=== PATIENT | female | born 1995 | race Caucasian/White ===

== ENCOUNTER 2023-12-28 10:25 | Outpatient (RCR) | payer OTHER, SELFPAY ==
--- NOTE | ~2023-12-28 | US_ITS ---
EXAMINATION: US OB limited w BPP DATE: 12/28/2023 11:44 INDICATION: Evaluate amniotic fluid and well-being TECHNIQUE: Real-time pelvic ultrasound was performed. The interpreting radiologist was not present fo r the study. COMPARISON: None. FINDINGS: There is a single living fetus in vertex presentation. The placenta is anterior/maternal right. Feta l cardiac activity and movement are demonstrated. heart rate is 134 beats per minute (bpm ). There is polyhydramnios. MELISSA measures 26.9 cm. Biophysical profile performed by the technologist: breathing (30 sec sustained breathing in 30 minutes): 2 out of 2 movement (3 gross body movements in 30 minutes): 2 out of 2 tone (one episode of gztxnav-paelknqah-pbmvqyc limb movement): 2 out of 2 Amniotic fluid pocket (2 cm): 2 out of 2 Total score: 8 out of 8 IMPRESSION: 1. Single living intrauterine in vertex presentation with heart rate of 134 bpm. 2. Normal placenta. 3. Biophysical profile 8 out of 8. 4: Polyhydramnios. Reviewed, dictated and finalized at location B.
[2023-12-28 12:21] VITALS: BP 122/79; PULSE 74
== END 2023-12-28 11:00 | disposition home or self-care (01) ==
LOC: ANHOBOP 10:25
PROVIDERS: PCP Internal Medicine; Visit Provider Obstetrics & Gynecology
DX: O48.0 Post-term pregnancy (principal); O34.219 Maternal care for unspecified type scar from previous cesarean delivery; O40.3XX0 Polyhydramnios, third trimester, not applicable or unspecified; N85.8 Other specified noninflammatory disorders of uterus; Z3A.40 40 weeks gestation of pregnancy
CPT/HCPCS: 59025; 76815; 76819

== ENCOUNTER 2023-12-30 05:06 | Inpatient (IN) | payer OTHER, SELFPAY ==
[2023-12-30] VITALS (227 sets, daily range): BP systolic 58–223; BP diastolic 36–178; PULSE 32–164; RESP 16–18; TEMP 36.4–37.1; O2SAT 90–100; BMI 27.5
[2023-12-30] MEDS: LACTATED RINGERS 1,000 ML 125 ML IV CONT ×2 (05:51→18:09)
[2023-12-30] MEDS: AMPICILLIN 2 GM/NS 100 ML 2 GM/100 ML BAG IVPB (05:52)
[2023-12-30 06:01] LABS: Basophils Percent Auto 0.4 % (0.2-1.2); Eosinophils Absolute Auto 0.1 K/mm3 (0-0.3); Eosinophils Percent Auto 1.6 % (0-4.4); Hematocrit 35.4 % (37.0-47.0); Hemoglobin 11.8 g/dL (12.0-15.0); Immature Granulocyte Percent A 1.2 % (0-0.5); Lymphocytes Absolute Auto 1.43 K/mm3 (0.9-3.2); Lymphocytes Percent Auto 17.2 % (18.3-44.2); Mean Corpuscular HGB Conc 33.3 g/dl (32-36); Mean Corpuscular Hemoglobin 28.9 pg (26-34); Mean Corpuscular Volume 86.6 fl (80-100); Mean Platelet Volume 10.5 fl (7.4-10.4); Monocytes Absolute Auto 0.6 K/mm3 (0.1-0.6); Monocytes Percent Auto 7.1 % (2.6-8.5); Neutrophils Percent Auto 72.5 % (45.5-73.1); Platelet Count Result 214 k/mm3 (150-375); Red Blood Count 4.09 M/mm3 (4.2-5.4); Red Cell Distribution Width 13.3 % (11.5-14.5); White Blood Count 8.3 K/mm3 (4.5-10.0)
--- NOTE | 2023-12-30 06:31 | LDADM ---
This patient, Aleah Bryan, was admitted to Labor/Delivery/Recovery 102 on 12/30/23 at 05:06. Plans for labor, pain management and were discussed with patient. Patient/family oriented to hospital policies and general routines including ID bracelet, bed and alarms, visiting hours, pain management, procedures, bathroom and other care routines, personal items, smoking policy, room service/diet and guest tray routines, security routines, and visiting hours. Patient/Family are encouraged to report perceived risks to care and to ask questions if they do not understand what they are told or what they should do. See OBIX for further documentation.
[2023-12-30 06:54] LABS: HIV 1/2 Ab P24 Ag Result Negative (Negative)
--- NOTE | 2023-12-30 07:27 | PM.IMHP ---
H&P: HPI History of Present Illness Date/Time: 12/30/23 07:27 Chief Complaint: Frantz porter Narrative: 28 y/o at 40 2/7 weeks gestation who had a gush of clear fluid at 0300 today. She has some mild contractions. GBS pos. We have had multiple discussions during this - she strongly desires TOLAC. In her first she says she did not really achieve much cervical dilation, had a for nonreassuring status. otherwise uncomplicated. EFW 6#11oz at 36 5/7 weeks, so now EFW around 8lbs. MELISSA was a little elevated earlier this week at 27 cm. Review of Systems Review of Systems: All systems reviewed & are unremarkable except as noted in HPI and below PMFSH Surgical History Surgical History (Updated 12/30/23 @ 07:32 by Aneudy Pena MD) History of delivery History of knee surgery History of tonsillectomy Family History Family History Grandparent Congestive heart failure Social History Social History Smoking status: Never smoker Substance use: never Do You Feel Safe in your Home?: Yes Lack of Transportation: No Lack of Food: Never True Current Housing: I Have Housing Concerned About Future Housing: No Difficulty Paying Gas/Electric Bills: No Difficulty Paying for Meds: No Currently Unemployed: No Education: Master's Degree or Higher Difficulty w/ Childcare or Family Care: No Spiritual care concerns: No Meds Home Medications and Allergies Home Medications Medication Instructions Recorded Confirmed Type vits no.126-ferrous fum 1 tablet PO DAILY 12/02/23 12/02/23 History 28 mg iron-folic acid 800 mcg tablet (Classic ) Allergies Allergy/AdvReac Type Severity Reaction Status Date / Time No Known Allergies Allergy Verified 12/02/23 12:12 Vital Signs Vital Signs - 24 hr 12/30/23 06:30 12/30/23 07:11 12/30/23 07:16 Temperature 36.4 C Pulse Rate 77 Respiratory Rate 16 Blood Pressure 114/65 Pulse Oximetry 98 100 Oxygen Delivery 12/30/23 07:21 12/30/23 07:26 12/30/23 06:30 Temperature Pulse Rate Respiratory Rate Blood Pressure Pulse Oximetry 99 99 Oxygen Delivery Room Air Exam Const: Orientation/consciousness: patient oriented x3 Other: Well-developed, well-nourished female in no acute distress. Neck: Thyroid: thyroid normal Lymphatic: no lymphadenopathy noted (in neck, axilla or inguinal nodes) Resp: Effort & Inspection: normal respiratory effort Auscultation: clear to auscultation bilaterally Cardio: Rate: regular rate Rhythm: regular rhythm Heart sounds: S1 normal heart sound present and S2 normal heart sound present GI: Other: ABD: Soft, nontender, nondistended, gravid, vertex. NST reactive. TOCO: irregular contractions. No guarding or rebound tenderness. No hepatosplenomegaly. : General: Yes no CVA tenderness Other: Cervix fingertip / 50%. Gross ROM with clear fluid. IUPC placed. Back/Spine/Pelvis: Back: no CVA tenderness Skin: General skin exam: normal color and no rashes or lesions noted Neuro: General: patient oriented x3 Extrem: Other: Extremities: nontender with no edema Psych: Mental Status: mental status grossly normal Affect: normal affect H&P: Results Labs Labs: Short CBC 12/30/23 Range/Units 05:55 WBC 8.3 (4.5-10.0) K/mm3 Hgb 11.8 L (12.0-15.0) g/dL Hct 35.4 L (37.0-47.0) % Plt Count 214 (150-375) k/mm3 Assessment and Plan Assessment and plan (1) SROM (spontaneous rupture of membranes): Status: Acute Assessment and Plan: A: IUP at 40 2/7 weeks with SROM, GBS colonization, prior . She strongly desires TOLAC. P: We have reviewed risks associated with TOLAC on several occasions, including today. She understands risks to inc
[2023-12-30 07:51] LABS: Rapid Plasma Reagin Non-Reactive (NonReactive)
--- NOTE | 2023-12-30 08:35 | WPDANESEPP ---
Anes - Eval Pre Procedure Procedure: Labor epidural Date/Time: 12/30/23 08:35 Surgeon: Jean Preop Diagnosis: Pain during labor Pre Op Diagnosis: IOL Patient Data Age: 28 Gender: F Height: 1.83 m Weight: 92 kg Last Vital Signs Temp 36.4 C 12/30/23 06:30 Pulse 77 12/30/23 06:30 Resp 16 12/30/23 06:30 BP 114/65 12/30/23 06:30 Pulse Ox 98 12/30/23 08:33 O2 Del Method Room Air 12/30/23 06:30 Allergies Allergy/AdvReac Type Severity Reaction Status Date / Time No Known Allergies Allergy Verified 12/02/23 12:12 Home Medications Medication Instructions Recorded Confirmed Type vits no.126-ferrous fum 1 tablet PO DAILY 12/02/23 12/02/23 History 28 mg iron-folic acid 800 mcg tablet (Classic ) Laboratory Tests 12/30/23 05:55 WBC 8.3 K/mm3 (4.5-10.0) RBC 4.09 L M/mm3 (4.2-5.4) Hgb 11.8 L g/dL (12.0-15.0) Hct 35.4 L % (37.0-47.0) MCV 86.6 fl (80-100) MCH 28.9 pg (26-34) MCHC 33.3 g/dl (32-36) RDW 13.3 % (11.5-14.5) Plt Count 214 k/mm3 (150-375) MPV 10.5 H fl (7.4-10.4) Immature Gran % (Auto) 1.2 H % (0-0.5) Neut % (Auto) 72.5 % (45.5-73.1) Lymph % (Auto) 17.2 L % (18.3-44.2) [place] % (Auto) 7.1 % (2.6-8.5) Eos % (Auto) 1.6 % (0-4.4) Baso % (Auto) 0.4 % (0.2-1.2) Lymph # (Auto) 1.43 K/mm3 (0.9-3.2) [place] # (Auto) 0.6 K/mm3 (0.1-0.6) Eos # (Auto) 0.1 K/mm3 (0-0.3) Baso # (Auto) 0.0 K/mm3 (0.0-0.1) Abs Immat Gran (auto) 0.10 H K/mm3 (0.00-0.031) Absolute Neuts (auto) 6.0 K/mm3 (1.3-6.7) Absolute Nucleated RBC 0.000 K/mm3 (0.0-0.012) Nucleated RBC % 0.0 % (0.0-0.2) RPR Non-reactive (NonReactive) HIV 1&2 Ab/P24 Ag 4thGn Negative (Negative) Blood Type O Positive Antibody Screen Negative Patient hx anesthesia problems: none Family hx anesthesia problems: none Results Review: All pre-operative results and documents have been reviewed as part of the pre-operative evaluation. [facility] Surgical History Surgical History History of delivery History of knee surgery History of tonsillectomy Family History Family History Grandparent Congestive heart failure Social History Social History Smoking status: Never smoker Substance use: never Do You Feel Safe in your Home?: Yes Lack of Transportation: No Lack of Food: Never True Current Housing: I Have Housing Concerned About Future Housing: No Difficulty Paying Gas/Electric Bills: No Difficulty Paying for Meds: No Currently Unemployed: No Education: Master's Degree or Higher Difficulty w/ Childcare or Family Care: No Spiritual care concerns: No Exam Day of Procedure 12/30/23 08:35 Patient weight: overweight Heart: regular rate and rhythm Lungs: clear to auscultation Airway: Mallampati scale Neurological: alert and oriented
[2023-12-30] MEDS: OXYTOCIN 30 UNITS/NS 500 ML 30 UNITS/500 ML BAG IV CONT (08:58)
[2023-12-30] MEDS: AMPICILLIN 1 GM/NS 50 ML 1 GM/50 ML BAG IVPB ×3 (10:02→18:09)
--- NOTE | 2023-12-30 14:03 | PM.OBPNLAB ---
Pain Control Date/time seen: 12/30/23 14:03 Comments: Comfortable with epidural. Pelvic Exam Dilation (cm): 3 Effacement (%): 90 station: 0 Contractions Contraction frequency: 3 Contraction pattern: Regular Status status: Category l Assessment and Plan Plan: continuous present management
[2023-12-30] MEDS: ONDANSETRON INJ 4 MG/2 ML VIAL IV PUSH (15:22)
--- NOTE | 2023-12-30 18:28 | PM.OBPNLAB ---
Pain Control Date/time seen: 12/30/23 18:28 Comments: Comfortable Pelvic Exam Dilation (cm): 6 Effacement (%): 90 station: 0 Contractions Contraction frequency: 3 Contraction pattern: Regular Status status: Category l Assessment and Plan Pitocin rate (mU/min): 3 Comments: Cervix unchanged for 2 hours. Patient would like to continue labor for a little longer.
[2023-12-30] MEDS: PHENYLEPHRINE 1,000 MCG/10 ML SYRINGE 100 MCG IV PUSH (18:49)
--- NOTE | 2023-12-30 22:27 | PM.OBPRVD ---
OB - Vaginal Delivery Note Procedure Delivery date: 12/30/23 Events: Previous Delivery Induction method: None Delivery augmentation: Pitocin Delivery monitor: External FHT, External Uterine and Internal Uterine Route of delivery: Episiotomy description: Midline Delivery repair: vicryl (3-0) Specimen: Yes (cord blood) Quantitative Blood Loss (ml): 370 Anesthesia type: Epidural Disposition: PACU Complications: None Narrative: 28 y/o at 40 2/7 weeks gestation who presented to the hospital after gush of clear fluid. SROM was confirmed. She was given ampicillin for GBS colonization. Labor was augmented with oxytocin intravenously. She received an epidural for pain control. Her labor progressed and her cervix dilated completely. She pushed with good effort. A midline episiotomy was made and the infant's head delivered to the perineum, followed by the body. The nose and mouth were bulb suctioned. After a delay, the cord was clamped and cut. The infant was handed off the field. Cord blood was collected. The placenta delivered spontaneously and was grossly normal in appearance. The usual 3 vessel cord was noted. The episiotomy was free of extension. This was reapproximated using 3 0 Vicryl in the usual layered fashion. Excellent hemostasis resulted as did excellent reapproximation of the normal anatomy. Needle and instrument counts were correct. The patient was taken to recovery room in stable condition. The went to the nursery in stable condition. I was present and scrubbed for the entire delivery. Baby Date of : 12/30/23 Time of : 22:02 Weeks of gestation at delivery: 40 Infant gender: Female presentation: vertex position: Left Occiput Anterior Placenta delivery description: Spontaneous and Normal Configuration Cord Vessel Description: 3 Vessels and Delayed Cord Clamping score one minute: 9 score five minutes: 9
--- NOTE | 2023-12-30 22:32 | PM.OBDSVD ---
DS: Admitting Diagnosis Discharge Date 01/01/24 Admitting Diagnosis IUP at 40 2/7 weeks SROM Prior , desires TOLAC GBS colonization DS: Discharge Diagnosis Discharge Diagnosis (1) , delivered: Code(s): O34.219 - Maternal care for unspecified type scar from previous delivery Status: Acute (2) GBS (group B Streptococcus carrier), +RV culture, currently : Code(s): O99.820 - Streptococcus B carrier state complicating Status: Acute OB - DS: Summary OB Procedures : None OB Procedures Intrapartum: OB Procedures: : None Peripartum Data Episiotomy description: Midline Time Spent with Patient Time attestation: Total time spent providing and/or coordinating discharge services: DS: Data Data Completed and Pending Labs on day of discharge: Labs from last 24 hours 12/30/23 05:55 WBC 8.3 RBC 4.09 L Hgb 11.8 L Hct 35.4 L MCV 86.6 MCH 28.9 MCHC 33.3 RDW 13.3 Plt Count 214 MPV 10.5 H Immature Gran % (Auto) 1.2 H Neut % (Auto) 72.5 Lymph % (Auto) 17.2 L [place] % (Auto) 7.1 Eos % (Auto) 1.6 Baso % (Auto) 0.4 Lymph # (Auto) 1.43 [place] # (Auto) 0.6 Eos # (Auto) 0.1 Baso # (Auto) 0.0 Abs Immat Gran (auto) 0.10 H Absolute Neuts (auto) 6.0 Absolute Nucleated RBC 0.000 Nucleated RBC % 0.0 RPR Non-reactive HIV 1&2 Ab/P24 Ag 4thGn Negative Blood Type O Positive Antibody Screen Negative Discharge Plan Discharge Attending physician on discharge: Aneudy Pena Discharging Clinician: Aneudy Pena Patient Disposition: Home, Self-Care Activity: pelvic rest Diet: regular Discharge Instructions: Call or return if temperature above 100.4? F, increased abdominal pain, increased vaginal bleeding or any new problems. Stand Alone Forms: General Discharge Information Follow-up/Referrals: Aneudy Pena MD [Physician] - 6 Weeks Discharge Medications: New ibuprofen 600 mg tablet 600 mg PO Q6H PRN (Reason: cramps) Qty: 30 0RF Continued Classic 28 mg iron- 800 mcg Tablet 1 tablet PO DAILY Date of admission: 12/30/23 05:06 Primary Care Provider: UNKNOWN,DOCTOR Admitting Provider: Aneudy Pena Attending physician on admission: Aneudy Pena Condition: Stable
[2023-12-30] MEDS: ACETAMINOPHEN 325 MG TABLET 650 MG PO (23:55)
[2023-12-30] MEDS: WITCH HAZEL 40 PADS 1 PAD TOPICAL (23:56)
[2023-12-30] MEDS: IBUPROFEN 600 MG TABLET PO (23:56)
[2023-12-30] MEDS: BENZOCAINE 20% AER SPR (*SP) 56 GM CAN 1 SPRAY TOPICAL (23:56)
[2023-12-31] VITALS (8 sets, daily range): BP systolic 104–158; BP diastolic 57–91; PULSE 61–78; RESP 16–18; TEMP 36.5–37.2; O2SAT 98–100
--- NOTE | 2023-12-31 00:40 | OBPPTRN ---
Patient transferred to post room #291 via wheelchair. Support person present. Oriented to unit, room, information board, rooming in, admission packet and security measures. Patient verbalizes understanding.
[2023-12-31 05:11] LABS: Hematocrit 34.2 % (37.0-47.0); Hemoglobin 11.3 g/dL (12.0-15.0)
[2023-12-31] MEDS: ACETAMINOPHEN 325 MG TABLET 650 MG PO ×3 (09:05→21:13)
[2023-12-31] MEDS: IBUPROFEN 600 MG TABLET PO ×3 (09:06→21:13)
[2023-12-31] MEDS: MULTIVIT/MIN/PREN/FOL AC/IRON TABLET 1 TAB PO (09:07)
[2023-12-31] MEDS: SIMETHICONE 80 MG TAB.CHEW PO (09:07)
[2023-12-31] MEDS: DOCUSATE SODIUM 100 MG CAPSULE PO (09:08)
--- NOTE | 2023-12-31 09:20 | PC.NURSE ---
Mother verbalizes she is able to independently latch with appropriate positioning and alignment. She has initial latch on nipple discomfort but no pain throughout feedings. is currently meeting outcomes for weight, output, jaundice, blood sugar and feeding frequencies of 8-12 times in 24 hours. Observed mother appropriately feeding infant in cradle hold on the right breast. Mother successfully breastfed her first baby. Compliance Nurse had some concerns about baby's suck reflex, but she appears to be latched and sucking well on the breast. Reviewed listening for swallows, will be fewer swallows to sucks until mom's milk is in. We also reviewed weight loss, jaundice, and output as indicators is getting everything she needs from . Mother declines any additional assistance or education at this time. Mother is encouraged to call for assistance if her infant doesn?t latch, pain with latching, questions or concerns. Mother voiced understanding of information shared along with the mom/baby guide for an additional resource. Reported to the Primary RN.
--- NOTE | 2023-12-31 10:26 | WPDANLDPN2 ---
Anes-Prog Note L&D Date/Time: 12/31/23 10:26 Comfortable throughout: labor and delivery Neuraxial method: epidural Epidural/Spinal procedure site: clean & non-tender Neuro status: Neuro function grossly intact. Cardiovascular status: normal Respiratory status: normal Airway patency: baseline Mental status: baseline Post-Op hydration status: normal Vital Signs: Last Vital Signs Temp 36.7 C 12/31/23 04:25 Pulse 65 12/31/23 04:25 Resp 16 12/31/23 04:25 BP 106/58 L 12/31/23 04:25 Pulse Ox 99 12/31/23 04:25 O2 Del Method Room Air 12/30/23 06:30 Pain score (VAS): 0 I/O: Intake & Output 12/30/23 12/31/23 12/31/23 23:59 07:59 15:59 Output Total 75 Balance -75 Post-procedural complaints: none Patient feedback: Patient satisfied with anesthetic care.
--- NOTE | 2023-12-31 10:43 | PM.OBPNVD ---
OB - PN: Subj Subjective Date/time seen: 12/31/23 10:43 Narrative: Pain OK. OB - PN: Obj Data Labs 12/31/23 04:31 Labs: Laboratory Results - last 24 hr 12/31/23 04:31 Hgb 11.3 L Hct 34.2 L OB - PN A/P Plan day: 1 Comments: A: PPD#1, doing well. P: Routine care. Exam Psych: Other: AVSS ABD soft, nontender, fundus firm EXT nontender
[2024-01-01] MEDS: IBUPROFEN 600 MG TABLET PO ×3 (02:51→15:39)
[2024-01-01] MEDS: ACETAMINOPHEN 325 MG TABLET 650 MG PO ×3 (02:51→15:39)
--- NOTE | 2024-01-01 09:17 | PM.OBPNVD ---
OB - PN: Subj Subjective Date/time seen: 01/01/24 09:17 Narrative: Pain OK. Would like to go home. OB - PN: Obj Data Labs 12/31/23 04:31 OB - PN A/P Plan day: 2 Comments: A: PPD#2, doing well. P: Home to f/u 6 weeks. Exam Psych: Other: AVSS ABD soft, nontender, fundus firm EXT nontender
[2024-01-01 09:23] VITALS: BP 115/69; PULSE 62; RESP 18; TEMP 36.8; O2SAT 100
[2024-01-01] MEDS: MULTIVIT/MIN/PREN/FOL AC/IRON TABLET 1 TAB PO (09:23)
[2024-01-01] MEDS: DOCUSATE SODIUM 100 MG CAPSULE PO ×2 (09:23→15:39)
--- NOTE | 2024-01-01 11:55 | PC.NURSE ---
Mother verbalizes she is able to independently latch with appropriate positioning and alignment. She denies any nipple discomfort and is responsively . Infant is currently not meeting outcomes for weight, but is meeting outcomes for output, jaundice, and feeding frequencies of 8-12 times in 24 hours. Per business leader request, this RN assessed latch and positioning. Per mother she was trying to latch to her right breast but said baby was sleepy, RN suggested unwrapping baby from blanket to wake her up, mother did so and was able to latch baby in cross cradle to right breast, baby had optimal latch and RN could see swallows and per mother she could hear swallows. Mother declines any additional assistance or education at this time. Mother is encouraged to call for assistance if her infant does not latch, pain with latching, questions or concerns. Mother voiced understanding of information shared along with the mom/baby guide for an additional resource. Reported to the Primary RN.
[2024-01-01] MEDS: BENZOCAINE 20% AER SPR (*SP) 56 GM CAN 1 SPRAY TOPICAL (15:38)
--- NOTE | 2024-01-02 10:01 | PC.NURSE ---
0845. Consulted with mother concerning needs and she shared her ability to independently latch infant optimally without pain. Per mom she reports baby is still having a hard time staying awake thru the feed. Mother is currently doing the 15-15-15 feeding plan: attempting to breastfeed baby for 15-20min, then pumping for 15 min and supplementing with at least 15ml of formula after. Mom understands the need to stimulate the sleepy infant to eat if needed while she is . has had appropriate feedings in the last 24 hours meets the outcomes output, blood sugar and jaundice at this time. Baby is not currently meeting her outcomes for weight. Her weight on 12/31 @1130 was 3350g which is 11.37% of her birthweight. Her weight on 12/31 @2234 was 3385g or 10.44% of her birthweight. At 0915 during today's consult with mom we did a weighted feed to determine how many ml's baby transferred during a feeding session. Her weight before the feed was 3425g and her weight after the feed was 3425g. Baby did have 2 stools during before the second weight was recorded. Reinforced with mom the importance of continuing to supplement after her attempts with at least 15 ml until she is cleared by her controller coal or ore to stop. Reinforced that mom needs to continue to pump to protect her milk supply. Measured mom's nipples to ensure the correct size flange is being used for her pump: measured at size 22mm; recommended mom used size 27 flange & pulled from pyxis for mom to use and go home with. Reinforced understanding of milk production, transition of milk, signs of adequate intake, transition of stool, prevention/relief of engorgement, plugged ducts, mastitis, responsive watching for feeding cues, the different methods of stimulating infant to breastfeed 1-3 hours after the start of the last feeding, community resources, and when to call a provider using the resource of the feeding sheet along with the mom and baby guide. Mother voiced understanding of the information shared, is confident to continue effectively her infant at home and supplementing after, when to call for assistance, denies any additional assistance or education at this time. Reported to the Primary RN.
[2024-01-03 11:12] VITALS: BP 136/73; PULSE 76; RESP 18; TEMP 36.9; O2SAT 100
== END 2024-01-01 19:20 | disposition home or self-care (01) | DRG 807 ==
LOC: ANHLDR 22:35 → ANHOB2 12-31 01:09
PROVIDERS: Admitting Provider Obstetrics & Gynecology; Visit Provider Obstetrics & Gynecology
DX: O34.219 Maternal care for unspecified type scar from previous cesarean delivery (principal); Z37.0 Single live birth; O99.824 Streptococcus B carrier state complicating childbirth; Z3A.40 40 weeks gestation of pregnancy
CPT/HCPCS: 36415; 59025; 76815; 76819; 84112; 85014; 85018; 85025; 86592; 86703; 86850; 86900; 86901; A9270; G0432; J0290; J2371; J2405; J2590; J2795; J7120

== ENCOUNTER 2025-05-28 13:42 | Emergency (ER) | payer OTHER, SELFPAY ==
[2025-05-28 13:51] VITALS: BP 132/85; PULSE 76; RESP 16; TEMP 36.5; O2SAT 100
--- NOTE | 2025-05-28 14:19 | ED_ITS ---
HPI - Female Genitourinary General Chief complaint: Vaginal Bleeding Stated complaint: VAGINAL BLEEDING Time Seen by Provider: 05/28/25 14:10 Source: patient and RN notes reviewed Mode of arrival: ambulatory Limitations: no limitations History of Present Illness HPI Narrative: 29-year-old female patient presents today with some intermittent vaginal bleeding over the past 2 days and states she feels blah.. Denies back pain or abdominal pain. She has had a positive test at home, which would be her 3rd preganancy. LMP 04/24/2025. She has seen Dr. Pena for previous pregnancies. Related Data Home Medications ?Medication ?Instructions ?Recorded ?Confirmed ?Last Taken ?Type No Home Medications 05/28/25 05/28/25 U nknown History Allergies Allergy/AdvReac Type Severity Reaction Status Date / Time No Known Allergies Allergy Verified 05/28/25 14:07 [facility] Surgical History Surgical History History of knee surgery History of delivery History of tonsillectomy Family History Family History Grandparent Congestive heart failure Social History Social History Smoking status: Never smoker Substance use: never Lack of Transportation: No Lack of Food: Never True Current Housing: I Have Housing Concerned About Future Housing: No Difficulty Paying Gas/Electric Bills: No Difficulty Paying for Meds: No Currently Unemployed: No Education: Master's Degree or Higher Difficulty w/ Childcare or Family Care: No Spiritual care concerns: No Comments At time of signature, I have reviewed and agree with nursing past medical, surgical, social and family history unless otherwise noted. Please see nursing chart for further information. There is no relevant family history pertinent to the presenting complaint Exam Narrative: GENERAL: Well-appearing, well-nourished, and in no acute distress. HEAD: Normocephalic, atraumatic. EYES: EOMI. No redness or drainage. Conjunctivae normal. ENT: Mucous membranes pink and moist. NECK: Normal AROM. CHEST: No respiratory distress. Clear to auscultation. HEART: Regular rate and rhythm. No murmur appreciated. ABDOMEN: Soft, nondistended, normal active bowel sounds.+ very mild tenderness to suprapubic area without rebound or guarding. EXTREMITIES: Normal range of motion. No edema. SKIN: Warm, dry, no rash. Capillary refill normal. Normal skin turgor. NEURO: No focal deficits. Alert and oriented x3. Gait steady. PSYCH: Normal affect. No signs of depression or anxiety. Course Course Level of Care: Express Care Visit Vital Signs Vital signs: Vital Signs Temperature 97.7 F 05/28/25 13:51 Pulse Rate 76 05/28/25 13:51 Respiratory Rate 16 05/28/25 13:51 Blood Pressure 132/85 05/28/25 13:51 Pulse Oximetry 100 05/28/25 13:51 Temperature 97.7 F 05/28/25 13:51 Pulse Rate 76 05/28/25 13:51 Respiratory Rate 16 05/28/25 13:51 Blood Pressure 132/85 05/28/25 13:51 Pulse Oximetry 100 05/28/25 13:51 Reviewed Transfer Transfered to: [place] Transportation: Other (Private vehicle) Transfer rationale: Daryn Accepting physician: Vaginal bleeding after positive test at home MDM MDM Narrative Medical decision making narrative: 29-year-old female patient presents today with some intermittent vaginal bleeding over the past 2 days and states she feels blah.. Denies back pain or abdominal pain. She has had a positive test at home, which would be her 3rd . LMP 04/24/2025. She has seen Dr. Pena for previous pregnancies. Upon exam, very mild tenderness of the suprapubic area without rebound or guarding. Due to limited capabilities at [facility], patient will be transferred to the ER at [facility] for further evaluation of her vaginal bleeding. Patient agrees with plan. VSS. Differential Diagnosis Differential Diagnosis: early , miscarriage, subchorionic hematoma, ectopic Critical Care Time Critical Care Time Critical Care Time: No Discharge Plan Discharge Clinical Impression: Vaginal bleeding Patient Disposition: Acute Care Hospital Condition: Stable Patient Language: Greek Prescriptions: No Action No Home Medications Follow-up/Referrals: PHYSICIAN,SOLDERER ELECTRONIC [Primary Care Provider, Internal Medicine] Time of Disposition: 14:25
== END 2025-05-28 14:20 | disposition short-term general hospital (02) ==
PROVIDERS: Emergency Provider Nurse Practitioner
DX: N93.9 Abnormal uterine and vaginal bleeding, unspecified (principal)
CPT/HCPCS: 99212; G0463

== ENCOUNTER 2025-05-28 14:41 | Emergency (ER) | payer OTHER, SELFPAY ==
--- OUTSIDE RECORDS SUMMARY | 2018-12-01 10:30 | XMS_ITS | Continuity of Care Document ---
Author Organization [employer] [place] Address [address] [place] [address] [address] [place] [address] Phone Care Team Providers Care Oyster Culler Name Role Phone Jhonatan PT, REINALDOT, Heladio Unavailable Unavaila ble Procedures Procedure Date Progress Note Therapeutic Exercise Therapeutic Activities Neuromuscular Re-Ed Manual Therapy Therapeutic Exercise Therapeutic Activities Neuromuscular Re-Ed Manual Therapy Hot or Cold Pack Therapeutic Exercise Therapeutic Activities Neuromuscular Re-Ed Manual Therapy Hot or Cold Pack Therapeutic Exercise Therapeutic Activities Neuromuscular Re-Ed Manual Therapy Therapeutic Exercise Therapeutic Activities Neuromuscular Re-Ed Manual Therapy Therapeutic Exercise Therapeutic Activities Neuromuscular Re-Ed Manual Therapy Progress Note Therapeutic Exercise Therapeutic Activities Neuromuscular Re-Ed Manual Therapy Hot or Cold Pack Therapeutic Exercise Therapeutic Activities Neuromuscular Re-Ed Manual Therapy Therapeutic Exercise Therapeutic Activities Neuromuscular Re-Ed Manual Therapy Hot or Cold Pack Therapeutic Exercise Therapeutic Activities Neuromuscular Re-Ed Manual Therapy Hot or Cold Pack Therapeutic Exercise Therapeutic Activities Neuromuscular Re-Ed Manual Therapy Hot or Cold Pack Therapeutic Exercise Therapeutic Activities Neuromuscular Re-Ed Manual Therapy Hot or Cold Pack Therapeutic Exercise Therapeutic Activities Neuromuscular Re-Ed Manual Therapy Hot or Cold Pack Therapeutic Exercise Therapeutic Activities Neuromuscular Re-Ed Manual Therapy Hot or Cold Pack Therapeutic Exercise Therapeutic Activities Neuromuscular Re-Ed Manual Therapy Hot or Cold Pack PT Evaluation Low Complexity Therapeutic Exercise Therapeutic Activities Manual Therapy Hot or Cold Pack Advance Directives Directive Yes / No Effective Date File Name No Information Encounters Encounter Description Practice Location Reason(s) For Visit Diagnoses Date Provider Providers Copied on Encounter [facility], [place], [place], [id number], tel:[phone] Ramonita Muscle weakness (generalized)Stiff ness of unspecified joint, not elsewhere classifiedAbnormal posturePain in right shoulder 9 Jhonatan Leija. . Referring Provider: Xavier Price [address], [place], [address]. tel:[phone] [facility], [place], [place], [id number], tel:[phone] [place] Muscle weakness (generalized)Stiff ness of unspecified joint, not elsewhere classifiedAbnormal posturePain in right shoulder Nov- 6- 9 [facility] Heladio. . Referring Provider: Luis Ervin, [address], [place], [address]. tel:[phone] [facility], [place], [place], [id number], [place] tel:[phone] [place] Muscle weakness (generalized)Stiff ness of unspecified joint, not elsewhere classifiedAbnormal posturePain in right shoulder Nov- 9- 9 [facility] Heladio. . Referring Provider: Luis Ervin, [address], [place], [address]. tel:[phone] [facility], [place], [place], [id number], [place] tel:[phone] [place] Muscle weakness (generalized)Stiff ness of unspecified joint, not elsewhere classifiedAbnormal posturePain in right shoulder Nov- 9 [facility] [place]. . Referring Provider: Luis Ervin [address], [place], [address]. tel:[phone] [facility], [place], [place], [id number], [place] tel:[phone] [place] Muscle weakness (generalized)Stiff ness of unspecified joint, not elsewhere classifiedAbnormal posturePain in right shoulder Nov- 2-201 9 [facility] Heladio. . Referring Provider: Luis Ervin, [address], [place], [address]. tel:[phone] [facility], [place], [place], [id number], [place] tel:[phone] [place] Muscle weakness (generalized)Stiff ness of unspecified joint, not elsewhere classifiedAbnormal posturePain in right shoulder Nov- 0-201 9 [facility] [place]. . Referring Provider: Luis Ervin, [address], [place], [address]. tel:[phone] [facility], [place], [place], [id number], [place] tel:[phone] [place] Muscle weakness (generalized)Stiff ness of unspecified joint, not elsewhere classifiedAbnormal posturePain in right shoulder 0 9 [facility] Heladio. . Referring Provider: Luis Ervin, [address], [place], [address]. tel:[phone] [facility], [place], [place], [id number], [place] tel:[phone] [place] Muscle weakness (generalized)Stiff ness of unspecified joint, not elsewhere classifiedAbnormal posturePain in right shoulder 0 9 [facility] Ferreira. . Referring Provider: Luis Ervin, [address], [place], [address]. tel:[phone] [facility], [place], [place], [id number], [place] tel:[phone] [place] Muscle weakness (generalized)Stiff ness of unspecified joint, not elsewhere classifiedAbnormal posturePain in right shoulder 9 [facility] Heladio. . Referring Provider: Luis Ervin, [address], [place], [address]. tel:[phone] [facility], [place], [place], [id number], [place] tel:[phone] [place] Muscle weakness (generalized)Stiff ness of unspecified joint, not elsewhere classifiedAbnormal posturePain in right shoulder 9 [facility] Heladio. . Referring Provider: Luis Ervin, [address], [place], [address]. tel:[phone] [facility], [place], [place], [id number], [place] tel:[phone] [place] Muscle weakness (generalized)Stiff ness of unspecified joint, not elsewhere classifiedAbnormal posturePain in right shoulder 9 [facility] Heladio. . Referring Provider: Luis Ervin, [address], [place], [address]. tel:[phone] [facility], [place], [place], [id number], [place] tel:[phone] [place] Muscle weakness (generalized)Stiff ness of unspecified joint, not elsewhere classifiedAbnormal posturePain in right shoulder 9 [facility] Heladio. . Referring Provider: Luis Ervin, [address], [place], [address]. tel:[phone] [facility], [place], [place], [id number], [place] tel:[phone] [place] Muscle weakness (generalized)Stiff ness of unspecified joint, not elsewhere classifiedAbnormal posturePain in right shoulder 9 [facility] Heladio. . Referring Provider: Luis Ervin, [address], [place], [address]. tel:[phone] [facility], [place], [place], [id number], [place] tel:[phone] [place] Muscle weakness (generalized)Stiff ness of unspecified joint, not elsewhere classifiedAbnormal posturePain in right shoulder 9 Donavon Ferreira. . Referring Provider: Luis Ervin, [address], [place], [address]. tel:[phone] [facility], [place], [place], [id number], [place] tel:[phone] [place] Muscle weakness (generalized)Stiff ness of unspecified joint, not elsewhere classifiedAbnormal posturePain in right shoulder 0-201 9 [facility] Heladio. . Referring Provider: Luis Ervin, [address], [place], [address]. tel:[phone] [facility] [address], [place], [place], [id number], [place] tel:[phone] [place] Muscle weakness (generalized)Stiff ness of unspecified joint, not elsewhere classifiedAbnormal posturePain in right shoulder 201 9 Jhonatan Leija. . Referring [facility]: [facility] [address], [place], [address]. tel:[phone] Family History Family Member Type Diagnosis Age At Onset No Information Payers Payer name Insurance type Covered constitution party ID Authorcarrolla dayday(s) [facility] CI [id number] Social History Type Description Quantity Date Captured Comments Sex Female Smoking Status No Information Chief Complaint And Reason For Visit No Information Reason For Referral Reason For Referral No Information History Of Present Illness Encounter Date Complaint History Of Prese nt Illness No Information Functional Status Date Functional Assessmen t No Information Instructions Date Instruction Additional Infor mation No Information Assessments Type Assessment Date No Information Patient Care Teams Name Effective Dates (start - stop) Status Members No Information
--- OUTSIDE RECORDS SUMMARY | 2025-05-28 14:47 | XMS_ITS | Clinical Summary ---
Author Organization [facility] Address [address] [place] [address] Care Team Providers Care Pipeline Engineer Name Role Phone Gunner Bliss MD Primary Care Provider [phone] Allergies No known active allergies Medications levonorgestrel (GIGI) 13.5 MG IUD 1 each (13.5 mg total) by Intrauterine route once. Active Apple Cider Vinegar 500 MG Tab Take 1 capsule by mouth daily. Active fish oil (OMEGA-3 FATTY ACID) 1000 MG Cap capsule Take 1 capsule (1,000 mg total) by mouth daily. Active Active Problems Problem Noted Date Diagnosed Date Complex tear of lateral meni scus of right knee as current injury 09/03/2022 Overview (10/22/2022): Added automatically from request for surgery [id number] Heart murmur 08/11/2022 Shortness of breath 08/11/2022 Encounter for elective induction of labor 2020 Migraine headache 08/10/2016 Overview (10/22/2022): Migraine type headaches Mild cognitive disorder 08/10/2016 Overview (10/22/2022): Mild cognitive disorder Astigmatism 06/02/2011 Immunizations Immunization Administration Dates Next Due Dtap (Generic) 12/05/1998 Hepatitis B 06/07/1994,01/25/1994,1993 Hib 03/01/1995,06/07/1994,03/29/1994 ,01/25/1994 Influenza (Generic) 05/27/2016 Influenza Adult (Generic) 04/04/2020,11/2019,03/25/2017,06/01/2016,2013,06/18/2013,04/23/2012 MMR 12/05/1998,03/01/1995 Opv 12/05/1998,03/29/1994,01/25/1994 Tdap (Generic) 06/26/2020,07/12/2019,06/06/2007 Family History Medical History Relation Comments skin cancer Father Thyroid Disease Mother Relation Status Comments Father Alive Mother Alive Social History Tobacco Use Types Packs/Day Years Used Date Smoking Tobacco: Never Smokeless Tobacco: Never Tobacco Cessation:Counseling Given: No Alcohol Use Standard Drinks/Week Comments Not Currently 0 (1 standard drink = 0.6 oz pur e alcohol) Humiliation, Afraid, Rape, and Kick questionnair e Answer Date Recorded Within the last year, have y ou been afraid of your partner or ex-partner? No 08/07/2020 Within the last year, have y ou been humiliated or emotionally abused in other ways by your partner or ex-partner? No Within the last year, have y ou been kicked, hit, slapped, or otherwise physically hurt by your partner or ex-partner? No 08/07/2020 Within the last year, have y ou been raped or forced to have any kind of sexual activity by your partner or ex-partner? No 08/07/2020 PHQ-2 Answer Date Recorded Patient Health Questionnaire-2 Score 0 10/22/2022 Depression Answer Date Recor ded Last EPDS Total Score 3 08/08/2020 Last EPDS Self Harm Result Often 08/08 Comments No Sex and Gender Information Value Date Recorded Sex Assigned at Not on file Legal Sex Female 4:56 PM CDT Gender Identity Not on file Sexual Orientation Not on file Last Filed Vital Signs Vital Sign Reading Time Taken Comments Blood Pressure 106/68 10/22/2022 8:15 AM CDT Pulse 68 10/22/2022 8:15 AM CDT Temperature 36.8 C (98.3 F) 10/22/2022 8:15 AM CDT Respiratory Rate 16 10/22/2022 8:15 AM CDT Oxygen Saturation 99% 10/22/2022 8:15 AM CDT Inhaled Oxygen Concentration - - Weight 69.9 kg (154 lb) 10/22/2022 8:15 AM CDT Height 182.9 cm (6') 10/22/2022 8:15 AM CDT Body Mass Index 20.89 10/22/2022 8:15 AM CDT Plan of Treatment Health Maintenance Due Date Last Done Comments Cervical Cancer Screening Pap Smear (Age 30 to 64) Every 3 Years 1993 HPV Vaccines (1 - 3-dose SCDM series) 2020 Annual Physical 10/23/2023 10/22/2022 Cervical Cancer Screening Pap with HPV Testing (Age 30 to 64) Every 5 Years 11/24/2023 Cervical Cancer Screening with HPV 11/24/2023 PHQ-2 (Physician [place]) 06/06/2024 COVID-19 Vaccine ( season) 2025 Influenza Adult (#1) 2025 04/04/2020, 07/12/2019, 03/25/2017, Additional history exists DTaP, Tdap and Td Vaccines (5 - Td or Tdap) 06/26/2030 06/26/2020, 07/12/2019, 06/06/2007, Additional history exists Hepatitis B Vaccines Completed 06/07/1994, 01/25/1994, 1993 Hepatitis C Completed 10/22/2022 Hepatitis A Vaccines Aged Out No long er eligible based on patient's age to complete this topic Meningococcal B Vaccine Aged Out No l onger eligible based on patient's age to complete this topic Meningococcal Vaccine Aged Out No chrissie huseyin eligible based on patient's age to complete this topic Pneumococcal Vaccine: Pediatrics (0 to 5 Years) and At-Risk Patients (6 to 49 Years) Aged Out No longer eligible based on patient's age to complete this topic RSV Immunizations Under 20 Months Aged Out No longer eligible based on patient's age to complete this topic Procedures Procedure Name Priority Date/Time Associated Diagnosis Comments HEPATITIS C ANTIBODY Routine 10/22/2022 9:16 AM CDT Annual physical exam Encounter for medical examination to establish care General medical exam Encounter for hepatitis C screening test for low risk patient from Last 3 Months or Most Recently Relevant to Health Maintenance Results * HEPATITIS C ANTIBODY (10/22/2022 9:16 AM CDT) HEPATITIS C AB NON-REACTI VE NON-REACT CHRISTA 10/22/2022 7:37 PM CDT [facility] Comment: ANTIBODIES TO HCV NOT DETECTED. DOES NOT EXCLUDE THE POSSIBILITY OF EXPOSURE TO HCV. 10/22/2022 9:16 AM CDT Gunner Bliss MD LABORATORY Final Result Performing Organization Address City/State/[facility] Co de Phone Number [facility] [address] [place] [address], [phone] from Last 3 Months or Most Recently Relevant to Health Maintenance Insurance Advance Directives * Full Code (Latest Code Status on File) Date Activated Date Inactivated Comments 08/07/2020 1:38 PM 08/09/2020 5:21 PM * Full Code Date Activated Date Inactivated Comments 08/07/2020 12:17 AM 08/07/2020 1:38 PM Care Teams Pipeline Engineer Relationship Specialty Start Date End Date Gunner Bliss MD [address] [address] PCP - General INTERNAL MEDICINE 08/17/22
--- OUTSIDE RECORDS SUMMARY | 2025-05-28 14:47 | XMS_ITS | Clinical Summary ---
Author Organization [facility] Address [address] [address] Care Team Providers Care Brazing Machine Operator Automatic Name Role Phone Inocenciatad Sandra RADHA-MAIL PROCESSOR Primary Care Provider + Source Comments [facility],non-owned Affiliates and Associated Physician Practices is amultiple site organization consisting of ambulatory clinics and hospital sitesin [place], [place], [place] and [place]. This disclosure is being madepursuant to the Care Everywhere program and may not contain all information available regarding this patient. Last updated 18.[facility] Allergies No known active allergies Social History Tobacco Use Types Packs/Day Years Used Date Smoking Tobacco: Never Assessed Comments Unknown Sex and Gender Information Value Date Recorded Sex Assigned at Not on file Legal Sex Female 5:37 AM PRICE ECONOMIST Gender Identity Not on file Sexual Orientation Not on file Plan of Treatment Health Maintenance Due Date Last Done Comments HIV SCREENING 2008 DTAP/TDAP/TD VACCINES (1 - Tdap) 2012 HEPATITIS B VACCINE (1 of 3 - 19+ 3-dose series) 2012 PAP SMEAR 2014 HPV VACCINE (1 - 3-dose SCDM series) 2020 DEPRESSION SCREENING 06/06/2024 COVID-19 VACCINE (1 - 2024- season) 2025 INFLUENZA VACCINE (#1) 2025 , 07/12/2019, 03/25/2017, Additional history exists ZOSTER VACCINE (1 of 2) 11/24/2043 HEPATITIS C SCREENING Completed 10/22/2022 HIB VACCINE Aged Out No longer eligi ble based on patient's age to complete this topic MENINGOCOCCAL (Group B) VACCINE SHARED DECISION-MAKING Aged Out No longer eligible based on patient's age to complete this topic MENINGOCOCCAL GROUPS A/C/Y/W VACCINE Aged Out No longer eligible based on patient's age to complete this topic PNEUMOCOCCAL VACCINE Aged Out No long er eligible based on patient's age to complete this topic Care Teams Brazing Machine Operator Automatic Relationship Specialty Start Date End Date Sandra Brand APRN-KENN [address] [id number] PCP - General Nurse Practitioner 07/04/19
[2025-05-28 14:48] VITALS: BP 133/87; PULSE 80; RESP 16; TEMP 36.6; O2SAT 100
--- OUTSIDE RECORDS SUMMARY | 2025-05-28 14:48 | XMS_ITS | Clinical Summary ---
Author Organization [facility] Address [address] [place] [address] Care Team Providers Care Wireless Store Manager Name Role Phone Sandra Brand NP Unavailable [phone] Sandra Brand NP Primary Care Provider [phone] Allergies No known active allergies Medications ibuprofen 200 mg tab/capIndication s:Pain Take 3 tablet/capsule (600 mg total) by mouth every 8 (eight) hours as needed for pain Active multivitamin capsuleIndication s:Vitamin Deficiency Prevention Take 1 capsule by mouth every morning Active omega-3 fatty acids 1,000 mg capsuleIndication s:supplement Take 1 capsule by mouth every morning Active apple cider vinegar 500 mg tablet Take 1 capsule by mouth every morning Active calcium-vit D3-mag gly-zinc 400 mg-83.3 mcg -166.7 mg capsuleIndication s:supplement Take 1 tablet by mouth every morning Active levonorgestreL (GIIG) 14 mcg/24 hrs (3 yrs) 13.5 mg IUDIndications:Pr egnancy Contraception 1 each by intrauterine route once Active HYDROcodone-aceta minophen (NORCO) 5-325 mg per tabletIndications :Pain TAKE 1 TABLET EVERY 4-6 HOURS NEEDED FOR PAIN 20 tablet 09/29/19 23 Active docosahexaenoic acid-epa 120-180 mg capsule Take 1 capsule by mouth daily Active Active Problems Problem Noted Date Diagnosed Date Complex tear of lateral meni scus of right knee as current injury 09/03/2022 Overview (09/03/2022): Added automatically from request for surgery [id number] Heart murmur 08/11/2022 Shortness of breath 08/11/2022 Mild cognitive disorder 08/10/2016 Overview (10/29/2016): Mild cognitive disorder Migraine headache 08/10/2016 Overview (10/29/2016): Migraine type headaches Astigmatism 06/02/2011 Myopia 06/02/2011 Surgical History Surgery Date Site/Laterality Comments KNEE ARTHROSCOPY W/ ACL RECONSTRUCTION 06/06/2014 - 06/05/2015 Right and 2017 SECTION 06/06/2020 - 06/05/2021 TONSILLECTOMY 06/06/1999 - 06/05/2000 Medical History Medical History Date Comments Hx Other Medical heart murmer; C omments: [facility] 08/10/2016 - Migraine Family History Medical History Relation Name Comments Anesthesia problems Neg Hx Social History Tobacco Use Types Packs/Day Years Used Date Smoking Tobacco: Never Smokeless Tobacco: Never Alcohol Use Standard Drinks/Week Comments Yes 0 (1 standard drink = 0.6 oz pur e alcohol) AUDIT-C Answer Date Recorded Q1: How often do you have a drink containing alc ohol? 2-3 times a week 09/03/2022 Q2: How many drinks containi ng alcohol do you have on a typical day when you are drinking? 1 or 2 09/03/2022 Q3: How often do you have si x or more drinks on one occasion? Never 09/03/2022 Personal Safety Answer Date Recorded Getting School Help Needed Not on file 10/05 Comments Unknown Sex and Gender Information Value Date Recorded Sex Assigned at Not on file Legal Sex Female 11:22 PM ANIMAL WARDEN Gender Identity Not on file Sexual Orientation Not on file Last Filed Vital Signs Vital Sign Reading Time Taken Comments Blood Pressure 116/73 09/28/2022 11:10 AM CDT Pulse 69 09/28/2022 11:15 AM CDT Temperature 36.3 C (97.3 F) 09/28/2022 10:40 AM CDT Respiratory Rate 23 09/28/2022 11:15 AM CDT Oxygen Saturation 98% 09/28/2022 11:15 AM CDT Inhaled Oxygen Concentration - - Weight 72.6 kg (160 lb) 11/08/2022 8:56 AM CDT Height 182.9 cm (6') 11/08/2022 8:56 AM CDT Body Mass Index 21.7 11/08/2022 8:56 AM CDT Plan of Treatment Health Maintenance Due Date Last Done Comments Cervical Cancer Screening 1993 Depression Screening 1993 Hepatitis C Screening 1993 Varicella Vaccines (2 of 2 - 2-dose childhood series) 1997 11/29/1994 Regular Well Visit/Exam 18-64 11/24/2011 HPV Vaccines (1 - 3-dose SCDM series) 2020 Covid-19 Vaccine (3 - season) 2025 03/24/2021, 02/13/2021 Influenza Vaccine (#1) 2025 , 04/04/2020, 07/12/2019, Additional history exists DTaP/Tdap/Td Vaccine (5 - Td or Tdap) 06/26/2030 06/26/2020, 07/12/2019, 06/06/2007, Additional history exists Hepatitis B Screening Completed 06/07/1994 , 01/25/1994, 1993 Pneumococcal vaccine <65 Aged Out No longer eligible based on patient's age to complete this topic Insurance [facility] [place] [address] CIGNA CIGNA Care Teams Wireless Store Manager Relationship Specialty Start Date End Date Sandra Brand NP PCP - General 10/12/16 Sandra Brand NP 09/03/16
--- NOTE | 2025-05-28 17:11 | PC.NURSE ---
Patient not found when called for in lobby.
--- OUTSIDE RECORDS SUMMARY | 2025-05-28 17:20 | XMS_ITS | Clinical Summary ---
Author Organization [facility] Address [address] [place] [address] Care Team Providers Care Reverberatory Skimmer Name Role Phone Sandra Brand NP Unavailable [phone] Sandra Brand NP Primary Care Provider [phone] Allergies No known active allergies Medications ibuprofen [...] tablet by mouth every morning Active levonorgestreL (GIGI) 14 mcg/24 hrs (3 yrs) 13.5 mg [...] (09/03/2022): Added automatically from request for surgery [id number] Heart murmur 08/11/2022 Shortness of breath 08/11/2022 [...] on file Legal Sex Female 11:22 PM FLIGHT FOLLOWER Gender Identity Not on file Sexual Orientation [...] patient's age to complete this topic Insurance [facility]PP[facility] Address: [facility] [address] [place] [address] CIGNA CIGNA Care Teams Reverberatory Skimmer Relationship Specialty Start Date End Date Sandra Brand NP PCP - General 10/12/16 Sandra Brand NP 09/03/16
--- OUTSIDE RECORDS SUMMARY | 2025-05-28 17:20 | XMS_ITS | Continuity of Care Document ---
Author Organization [facility] [employer] [facility], [facility] Address [address] [place] [address] Assessment No assessment recorded. 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 Referral None record ed. Procedures None record ed. Surgeries None record ed. Imaging None record ed. Medication Orders None record ed. Patient TargetsNo targets recorded. Patient Instructions Encounter Date Encounter Id Patient Instructions Last Modified By Organization Details Last Modified Time 04/10/2025 [id number] IUD removal: car e instructions [email or web address] Not available 04/10/2025 14:39:18 Reason for Referral None Reported. Problems Name Problem SNOMED Code Status Onset Date Resolution Date Notes Provider Name and Address Organization Details Recorded Time Gestatio n period, 10 weeks 93327685 Completed 201909/17/2020 10 weeks gestatio n of pregnanc y; Progress : Stable Added By: Lisbet Zamudio Add to Current Problems : NO ProblemS tatus: Resolve Not Available [employer] 2 19:37:12 Pregnanc y, childbir th and puerperi um finding Completed 201909/17/2020 Encounte r for supervis ion of normal first pregnanc y, first trimeste r; Progress : Stable Added By: Lisbet Zamudio Add to Current Problems : NO ProblemS tatus: Resolve Not Available [employer] 2 19:37:16 Pregnanc y, childbir th and puerperi um finding Completed 201909/17/2020 Encounte r for supervis ion of normal first pregnanc y, second trimeste r; Progress : Stable Added By: Lisbet Zamudio Add to Current Problems : NO ProblemS tatus: Resolve Not Available [facility] 2 19:37:23 Gestatio n period, 15 weeks [id number] Completed 201909/17/2020 15 weeks gestatio n of pregnanc y; Progress : Stable Added By: Arsalan Grijalva Add to Current Problems : NO ProblemS tatus: Resolve Not Available [facility] 2 19:37:16 Gestatio n period, 20 weeks 18835974 Completed 201909/17/2020 20 weeks gestatio n of pregnanc y; Progress : Stable Added By: Lisbet Zamudio Add to Current Problems : NO ProblemS tatus: Resolve Not Available [facility] 2 19:37:24 Antenata l screenin g for malforma tion Completed 201909/17/2020 Encounte r for antenata l screenin g for malforma tions; Progress : Stable Added By: Lisbet Zamudio Add to Current Problems : NO ProblemS tatus: Resolve Not Available [facility] 2 19:37:19 Gestatio n period, 24 weeks [id number] Completed 201909/17/2020 24 weeks gestatio n of pregnanc y; Progress : Stable Added By: Lisbet Zamudio Add to Current Problems : NO ProblemS tatus: Resolve Not Available [facility] 2 19:37:30 Gestatio n period, 28 weeks [id number] Completed 201909/17/2020 28 weeks gestatio n of pregnanc y; Progress : Stable Added By: Lisbet Zamudio Add to Current Problems : NO ProblemS tatus: Resolve Not Available [facility] 2 19:37:17 Pregnanc y, childbir th and puerperi um finding Completed 201909/17/2020 Encounte r for supervis ion of normal first pregnanc y, third trimeste r; Progress : Stable Added By: Arsalan Grijalva Add to Current Problems : NO ProblemS tatus: Resolve Not Available [facility] 2 19:37:16 Uterine size for dates discrepa ncy Completed 201909/17/2020 Uterine size-naomi e discrepa ncy, third trimeste r; Progress : Stable Added By: Rasta Duffy Add to Current Problems : NO ProblemS tatus: Resolve Not Available [facility] 2 19:37:20 Gestatio n period, 30 weeks [id number] Completed 201909/17/2020 30 weeks gestatio n of pregnanc y; Progress : Stable Added By: Ginette Worrell Add to Current Problems : NO ProblemS tatus: Resolve Not Available [facility] 19:37:12 Gestatio n period, 33 weeks 79260141 Completed 202009/17/2020 33 weeks gestatio n of pregnanc y; Progress : Stable Added By: Teresa Barcenas Add to Current Problems : NO ProblemS tatus: Resolve Not Available [facility] 2 19:37:27 Gestatio n period, 36 weeks [id number] Completed 202009/17/2020 36 weeks gestatio n of pregnanc y; Progress : Stable Added By: Arsalan Grijalva Add to Current Problems : NO ProblemS tatus: Resolve Not Available [facility] 2 19:37:27 Antenata l screenin g Completed 202009/17/2020 Encounte r for antenata l screenin g for Streptoc occus B; Progress : Stable Added By: Arsalan Grijalva Add to Current Problems : NO ProblemS tatus: Resolve Encounte r for other specifie d antenata l screenin g; Progress : Stable Added By: Arsalan Grijalva Add to Current Problems : NO ProblemS tatus: Resolve; Start Date : 01/09/20 20 Not Available [facility] 2 19:37:30 Gestatio n period, 37 weeks 80861492 Completed 202009/17/2020 37 weeks gestatio n of pregnanc y; Progress : Stable Added By: Jaja Read Add to Current Problems : NO ProblemS tatus: Resolve Not Available [facility] 2 19:37:24 Gestatio n period, 38 weeks 47175559 Completed 202009/17/2020 38 weeks gestatio n of pregnanc y; Progress : Stable Added By: Jaja Read Add to Current Problems : NO ProblemS tatus: Resolve Not Available [facility] 2 19:37:17 Gestatio n period, 39 weeks [id number] Completed 202009/17/2020 39 weeks gestatio n of pregnanc y; Progress : Stable Added By: Arsalan Grijalva Add to Current Problems : NO ProblemS tatus: Resolve Not Available [facility] 2 19:37:24 Gestatio n period, 40 weeks [id number] Completed 202009/17/2020 40 weeks gestatio n of pregnanc y; Progress : Stable Added By: Arsalan Grijalva Add to Current Problems : NO ProblemS tatus: Resolve Not Available [facility] 2 19:37:29 Procedur e on genitour inary system Completed 202009/17/2020 Encounte r for surgical aftercar e followin g surgery on the genitour inary system; Progress : Stable Added By: Lisbet Zamudio Add to Current Problems : NO ProblemS tatus: Resolve Not Available [facility] 2 19:37:20 Postoper ative care Completed 202009/17/2020 Encounte r for surgical aftercar e followin g surgery on the genitour inary system; Progress : Stable Added By: Lisbet Zamudio Add to Current Problems : NO ProblemS tatus: Resolve Not Available [facility] 2 19:37:20 Depressi on screenin g Completed 202009/17/2020 Encounte r for screenin g for maternal depressi on; Progress : Stable Added By: Lisbet Zamudio Add to Current Problems : NO ProblemS tatus: Resolve Not Available [facility] 2 19:37:19 Insertio n of intraute rine contrace ptive device done [id number] Active 2020 Encounte r for insertio n of intraute rine contrace ptive device; Severity : Moderate Progress : Stable Added By: Lisbet Zamudio Add to Current Problems : YES ProblemS tatus: Current Not Available [facility] 1 04:09:20 Lochia finding Active 2020 Encounte r for routine postpart um follow-u p; Progress : Stable Added By: Lisbet Zamudio Add to Current Problems : YES ProblemS tatus: Current Not Available [facility] 2 19:37:24 Insertio n of intraute rine contrace ptive device Active 2020 Encounte r for insertio n of intraute rine contrace ptive device; Progress : Stable Added By: Lisbet Zamudio Add to Current Problems : YES ProblemS tatus: Current Not Available [facility] 2 19:37:27 Problem Notes None recorded. Procedures Surgical History Date Name Laterality Status Provider Name and Address Organization Details Recorded Time 5 IUD Removal completed HUEY DAWSON [address] [place], [address] 04/10/2025 14:33:51 5 Date of Last Pap Smear completed [facility] 04/10/2025 14:10:01 C Section completed [facility] 04/10/2025 14:10:01 knee joint operation completed [facility] 04/10/2025 14:15:13 Imaging Results None recorded. Procedure Notes None recorded. Medical Equipment None Reported. Allergies No known drug allergies Medications Name Sig Start Date Stop Date Status Note LastModified by Organization Details LastModified Time PNV 29-2024 completed PNV Refill Denied: No Refill DateOccur red: 0 Edited by: Lisbet Gore ) on 0 Stopped by: Lisbet Gore ) on Not Available Not Available Not Available Vitals Date Recorded Body height Body mass index (BMI) Body weight Systolic And Diastolic Provider Name and Address Organization Details Last Updated DateTime 04/10/2025 182.88 cm 23.1 kg/m2 86039.7 g 118/72 mm[Hg] Nara Carranza [facility] [employer] [facility] 04/10/2025 14:12:12 Social History Question Answer Notes LastModified by Organizat ion Details LastModified Time Tobacco Smoking Status Never Smoker Nara magana, [facility] [employer] [facility] 04/10/2025 14:14:25 Are You Blind Or Do You Have Difficulty Seeing? No [email or web address] Information not available 04/10/2025 Are You Deaf Or Do You Have Serious Difficulty Hearing? No Information not available 04/10/2025 What Type Of Diet Are You Following? REGULAR [email or web address] Information not available 04/10/2025 Which Illicit Or Recreational Drugs Have You Used? Marijuana [email or web address] Information not available 04/10/2025 How Many Children Do You Have? 2 [email or web address] Information not available 04/10/2025 What Is Your Relationship Status? [email or web address] Information not available 04/10/2025 Are You Sexually Active? Yes Information not available 04/10/2025 What Types Of Sporting Activities Do You Participate In? [employer] Ball [email or web address] Information not available 04/10/2025 Have You Used IV Drugs? No [email or web address] Information not available 04/10/2025 Sex: Unknown Functional Status Question Answer Note LastModified by Organizat ion Details LastModified Time How many times per week do you consume alcohol? Less than 1 time per week [email or web address] Information not available 04/10/2025 Do you use any illicit or recreational drugs? Yes [email or web address] Information not available 04/10/2025 Do you or have you ever used any other forms of tobacco or nicotine? No [email or web address] Information not available 04/10/2025 What is your level of alcohol consumption? Occasional [email or web address] Information not available 04/10/2025 Mental Status None recorded. Family History Relationship Description Onset Age of this Age Resolved Age Notes LastModified by Organization Details LastModified Time Unspecified Relation Malignant neoplasm of breast [email or web address] Not available 2024 14:10:01 Medical History Condition Response Other Cancer N High Blood Pressure N Colon Cancer N Cytomegalovirus N Hyperthyroidism N MRSA N Breast Cancer N Herpes (HSV) N Blood Transfusion N Lung Cancer N Depression N Hypothyroidism N Incontinence N Panic Attacks N Neurological Disorder N Deep Vein Thrombosis N Anxiety Disorder N Autoimmune disease N Arthritis N Tuberculosis/Positive PPD N Shingles N Polycystic Ovarian Syndrome N Infertility N Cervical Cancer N Hematuria N Chlamydia N Stroke N Varicosities N Seasonal allergies N Crohn's Disease N Alzheimer's/Dementia N COPD/Emphysema N Endometriosis N HPV/Genital Warts N IBS (Irritable Bowel Syndrome) N History of Abnormal Pap N High Cholesterol N Liver Disease N Kidney Infection N Fibromyalgia N Ulcer N Kidney Disease N HIV N Gallbladder disease N Sickle Cell Disease/Trait N Von Willebrand disease N ADD/ADHD N Eating Disorder N Anemia N Diabetes Mellitus (non-insulin dependent ) N Multiple Sclerosis N Ovarian Problems N Gonorrhea N Frequent Urinary Tract infections N Osteopenia N Headaches/migraines N GERD (reflux) N Ovarian Cancer N Diabetes (insulin dependent) N Seizures/Epilepsy N Breast Problems N Fibroids N Asthma N Heart Attack N Lupus N Endometrial Cancer N Rubella N Blood Clotting Disorder N Bipolar Disorder N Diabetes Mellitus (during ) N Ulcerative Colitis N Hepatitis N Heart Disease N Pulmonary Embolism N RPR N Chicken Pox N Osteoporosis N Gynecological History Statement/Question Response Date of Last Colonoscopy Flow Moderate Frequency of Cycle (Q days) 30 Date of LMP 01/24/2024 Most Recent Bone Density Date of Last Pap Smear 07/04/2024 Duration of Flow (days) 5ish Most Recent Mammogram Current Control Method IUD Age at Menarche 12 Obstetrics History GPAL:G 2 P 2 0 0 2 Type Value Full Term 2 Living 2 Total 2 Past Encounters Encounter ID Performer Location Encounter Start Date Encounter Closed Date Diagnosis/Indication Diagnosis SNOMED-CT Code Diagnosis ICD10 Code Diagnosis IMO Codes Diagnosis Note [id number] HUEY DAWSON [facility] [address] [place] [address] 04/10/2025 14:01:37 04/10/2025 15:02:25 Removal of intrauterine contraceptive device [id number] Z30.432 -- IUD removed without incident at bedside and shown to patient (see procedure note)--Tutu erated procedure well.-- Educated on OTC NSAID therapy for 24-48 hours PRN following procedure. Bleeding profile reviewed.- - Aware fertility will return quickly. Discussed tracking menses and ovulation predictor kits if needed.-- Discussed starting PNV if TTC-- RTO for annual or after positive test. Health Concerns Section Related Observation LastModified by Organization Detai ls LastModified Time None Recorded Concern Status LastModified by Organization Details LastModified Time None Recorded Payers Encounter Date Sequence Insurance Name Policy Number Policy Jacobo Covered Member ID Jacobo Member ID Guarantor Name 04/10/2025 1 [facility] [id number] Gage Bryan [id number] Aleah Bryan Notes Date Note Type Note Provider Name and Address Organization Details Recorded Time 04/10/2025 text/html Aleah is a 29yo new Pt present for family planning. Pt. states that she is seeking and would like IUD removed. HUEY DAWSON [address] [facility] [address], [place], [address], [facility] 04/10/2025 14:41:23 OBGyn Episode No OBEpisode recorded.
--- OUTSIDE RECORDS SUMMARY | 2025-05-28 17:20 | XMS_ITS | Clinical Summary ---
Author Organization [facility] Address [address] [place] [address] Care Team Providers Care Systems Management Consultant Name Role Phone Inocenciatad Sandra RADHA-SCHEDULING ANALYST Primary Care Provider + Source Comments [facility],non-owned Affiliates and Associated Physician Practices is amultiple site organization consisting of ambulatory clinics and hospital sitesin [place], [place], [place] and [place]. This disclosure is being madepursuant to the Care Everywhere program and may not contain all information available regarding this patient. 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
--- OUTSIDE RECORDS SUMMARY | 2025-05-28 17:20 | XMS_ITS | Data Portability ---
Author Organization [facility] [place] , [facility] Address [address] [place] [address] Assessment No assessment recorded. Plan of Treatment Reminders Order Date Submit Date Provider Last Modified By Organization Details Last Modified Time Details Appointments ABRASIVE WORKER SONO 30 2025 02:15P M Ultrasound Rocio 4 Not available Not available Not available ABRASIVE WORKER EST 2025 02:45P M PROSPER ASHLEE, CUSTOMER ENGINEERING SPECIALIST Not available Not available Not available Lab None record ed. Referral None record ed. Procedures None record ed. Surgeries None record ed. Imaging None record ed. Medication Orders None record ed. Patient TargetsNo targets recorded. Patient Instructions Encounter Date Encounter Id Patient Instructions Last Modified By Organization Details Last Modified Time 04/10/2025 [id number] IUD removal: car e instructions [email or web address] Not available 04/10/2025 14:39:18 Reason for Referral None Reported. Problems Name Problem SNOMED Code Status Onset Date Resolution Date Notes Provider Name and Address Organization Details Recorded Time Gestatio n period, 10 weeks 00989380 Completed 201909/17/2020 10 weeks gestatio n of [...] : NO ProblemS tatus: Resolve Not Available [facility] 2 19:37:23 Gestatio n period, 15 weeks 6389647 Completed 201909/17/2020 15 weeks gestatio n of pregnanc y; Progress : Stable Added By: Arsalan Grijalva Add to Current Problems : NO ProblemS tatus: Resolve Not Available [facility] 2 19:37:16 Gestatio n period, 20 weeks 44423059 Completed 201909/17/2020 20 weeks gestatio n of pregnanc y; Progress : Stable Added By: Lisbet Zamudio Add to Current Problems : NO ProblemS tatus: Resolve Not Available [facility] 2 19:37:24 Antenata l screenin g for malforma tion Completed 201909/17/2020 Encounte r for antenata l screenin g for malforma tions; Progress : Stable Added By: Lisbet Zamudio Add to Current Problems : NO ProblemS tatus: Resolve Not Available [facility] 2 19:37:19 Gestatio n period, 24 weeks [id number] Completed 201909/17/2020 24 weeks gestatio n of pregnanc y; Progress : Stable Added By: Lisbet Zamudio Add to Current Problems : NO ProblemS tatus: Resolve Not Available [facility] 2 19:37:30 Gestatio n period, 28 weeks 83411027 Completed 201909/17/2020 28 weeks gestatio n of pregnanc y; Progress : Stable Added By: Lisbet Zamudio Add to Current Problems : NO ProblemS tatus: Resolve Not Available [facility] 2 19:37:17 Pregnanc y, childbir th and puerperi um finding Completed 201909/17/2020 Encounte r for supervis ion of normal first pregnanc y, third trimeste r; Progress : Stable Added By: Arsalan Grijalva Add to Current Problems : NO ProblemS tatus: Resolve Not Available [facility] 2 19:37:16 Uterine size for dates discrepa ncy Completed 201909/17/2020 Uterine size-naomi e discrepa ncy, third trimeste r; Progress : Stable Added By: Rasta Duffy Add to Current Problems : NO ProblemS tatus: Resolve Not Available [facility] 2 19:37:20 Gestatio n period, 30 weeks 16733481 Completed 201909/17/2020 30 weeks gestatio n of pregnanc y; Progress : Stable Added By: Ginette Worrell Add to Current Problems : NO ProblemS tatus: Resolve Not Available [facility] 2 19:37:12 Gestatio n period, 33 weeks 06710257 Completed 202009/17/2020 33 weeks gestatio n of pregnanc y; Progress : Stable Added By: Teresa Barcenas Add to Current Problems : NO ProblemS tatus: Resolve Not Available [facility] 2 19:37:27 Gestatio n period, 36 weeks [id number] Completed 202009/17/2020 36 weeks gestatio n of pregnanc y; Progress : Stable Added By: Arsalan Grijalva Add to Current Problems : NO ProblemS tatus: Resolve Not Available [facility] 2 19:37:27 Antenata l screenin g [...] Start Date : 01/09/20 20 Not Available [facility] 2 19:37:30 Gestatio n period, 37 weeks [id number] Completed 202009/17/2020 37 weeks gestatio n of pregnanc y; Progress : Stable Added By: Jaja Read Add to Current Problems : NO ProblemS tatus: Resolve Not Available [facility] 2 19:37:24 Gestatio n period, 38 weeks 87195068 Completed 202009/17/2020 38 weeks gestatio n of pregnanc y; Progress : Stable Added By: Jaja Read Add to Current Problems : NO ProblemS tatus: Resolve Not Available [facility] 2 19:37:17 Gestatio n period, 39 weeks 09307843 Completed 202009/17/2020 39 weeks gestatio n of pregnanc y; Progress : Stable Added By: Arsalan Grijalva Add to Current Problems : NO ProblemS tatus: Resolve Not Available [facility] 2 19:37:24 Gestatio n period, 40 weeks 81877582 Completed 202009/17/2020 40 weeks gestatio n of pregnanc y; Progress : Stable Added By: Arsalan Grijalva Add to Current Problems : NO ProblemS tatus: Resolve Not Available [facility] 2 19:37:29 Procedur e on genitour [...] of intraute rine contrace ptive device done [id number] 9109 Active 2020 Encounte r for insertio n of intraute rine contrace ptive device; Severity : Moderate Progress : Stable Added By: Lisbet Zamudio Add to Current Problems : YES ProblemS tatus: Current Not Available [facility] 1 04:09:20 Lochia finding Active 2020 Encounte r for routine postpart um follow-u p; Progress : Stable Added By: Lisbet Zamudio Add to Current Problems : YES ProblemS tatus: Current Not Available [facility] 2 19:37:24 Insertio n of intraute rine contrace ptive device Active 2020 Encounte r for insertio n of intraute rine contrace ptive device; Progress : Stable Added By: Lisbet Zamudio Add to Current Problems : YES ProblemS tatus: Current Not Available [facility] 19:37:27 Problem Notes None recorded. Procedures Surgical History Date Name Laterality Status Provider Name and Address Organization Details Recorded Time 5 IUD Removal completed HUEY DAWSON [address] [place], [address], [facility] IV 04/10/2025 14:33:51 5 Date of Last Pap Smear completed [facility] IV 04/10/2025 14:10:01 C Section completed [facility] 04/10/2025 14:10:01 knee joint operation completed [facility] IV 04/10/2025 14:15:13 Imaging Results None recorded. Procedure Notes None recorded. Medical Equipment None Reported. Allergies No known drug allergies Medications Name Sig Start Date Stop Date Status Note LastModified by Organization Details LastModified Time PNV 29-2024 completed PNV 29 Refill Denied: No Refill DateOccur red: 0 Edited by: Lisbet Gore ) on 0 Stopped by: Lisbet Gore ) on Not Available Not Available Not Available Vitals Date Recorded Body height Body mass index (BMI) Body weight Systolic And Diastolic Provider Name and Address Organization Details Last Updated DateTime 04/10/2025 182.88 cm 23.1 kg/m2 76805.7 g 118/72 mm[Hg] Nara Carranza [facility] IV 04/10/2025 14:12:12 Social History Question Answer Notes LastModified by Fliggo Details LastModified Time Tobacco Smoking Status Never Smoker Nara magana, [facility] IV 04/10/2025 14:14:25 Are You Blind Or Do You Have Difficulty Seeing? No [email or web address] Information not available 04/10/2025 Are You Deaf Or Do You Have Serious Difficulty Hearing? No [email or web address] Information not available 04/10/2025 What Type Of Diet Are You Following? REGULAR Information not available 04/10/2025 Which Illicit Or Recreational Drugs Have You Used? Marijuana Information not available 04/10/2025 How Many Children Do You Have? 2 [email or web address] Information not available 04/10/2025 What Is Your Relationship Status? [email or web address] Information not available 04/10/2025 Are You Sexually Active? Yes [email or web address] Information not available 04/10/2025 What Types Of Sporting Activities Do You Participate In? [employer] [email or web address] Information not available 04/10/2025 Have You Used IV Drugs? No [email or web address] Information not available 04/10/2025 Sex: Unknown Functional Status Question Answer Note LastModified by [employer] Details LastModified Time How many times per week do you consume alcohol? Less than 1 time per week Information not available 04/10/2025 Do you use any illicit or recreational drugs? Yes Information not available 04/10/2025 Do you or have you ever used any other forms of tobacco or nicotine? No Information not available 04/10/2025 What is your level of alcohol consumption? Occasional [email or web address] Information not available 04/10/2025 Mental Status None recorded. Family History Relationship Description Onset Age of this Age Resolved Age Notes LastModified by Organization Details LastModified Time Unspecified Relation Malignant neoplasm of breast [email or web address] Not available 2024 14:10:01 Medical History Condition Response Other Cancer N High Blood Pressure N Colon Cancer N Cytomegalovirus N Hyperthyroidism N MRSA N Blood Transfusion N Herpes (HSV) N Breast Cancer N Lung Cancer N Hypothyroidism N Depression N Incontinence N Panic Attacks N Neurological Disorder N Deep Vein Thrombosis N Anxiety Disorder N Autoimmune disease N Arthritis N Shingles N Tuberculosis/Positive PPD N Infertility N Polycystic Ovarian Syndrome N Cervical Cancer N Chlamydia N Hematuria N Stroke N Varicosities N Seasonal allergies N Crohn's Disease N Alzheimer's/Dementia N COPD/Emphysema N Endometriosis N HPV/Genital Warts N IBS (Irritable Bowel Syndrome) N History of Abnormal Pap N High Cholesterol N Liver Disease N Kidney Infection N Fibromyalgia N Ulcer N Kidney Disease N HIV N Gallbladder disease N Von Willebrand disease N Sickle Cell Disease/Trait N ADD/ADHD N Eating Disorder N Diabetes Mellitus (non-insulin dependent ) N Anemia N Ovarian Problems N Multiple Sclerosis N Gonorrhea N Frequent Urinary Tract infections N Osteopenia N Headaches/migraines N GERD (reflux) N Ovarian Cancer N Diabetes (insulin dependent) N Seizures/Epilepsy N Breast Problems N Fibroids N Asthma N Heart Attack N Endometrial Cancer N Lupus N Rubella N Blood Clotting Disorder N [...] ICD10 Code Diagnosis IMO Codes Diagnosis Note [id number] HUEY DAWSON [facility] [address] [place] [address] 04/10/2025 14:01:37 04/10/2025 15:02:25 Removal of intrauterine contraceptive device [id number] Z30.432 -- IUD removed without incident at [...] Concerns Section Related Observation LastModified by Organization Jacob brantley LastModified Time None Recorded Concern Status LastModified by Organization Details LastModified Time None Recorded Advance Directives Directive None Recorded Payers Insurance Date Sequence Insurance Name Policy Number Policy Jacobo Covered Member ID Jacobo Member ID Guarantor Name 05/27/2025 1 AENA [id number] Gage Bryan [id number] Aleah Bryan Notes Date Note Type Note Provider Name and Address Organization Details Recorded Time 04/10/2025 text/html Aleah is a 29yo new Pt present for family planning. Pt. states that she is seeking and would like IUD removed. HUEY DAWSON [address] [place], [address], [facility] [employer] [facility] 04/10/2025 14:41:23 OBGyn Episode Ob Episode Information Episode Created Date Number of Fetuses Patient Bloodtype Patient rh Status Prepregnancy Weight lbs Domestic Partner Domestic Partner Phone Father Name Photography Intern Status 08/21/19 22 1 CLOSED Fetus Data First Name Last Name Admitted to NICU Weight (g) Sex Living Outcome Pediatric Complications Fetus ID Race Codes Race Delivery Type 3486.98 85 F Full Term [id number] Primary Beni Calculation Initial Beni Date Initial Exam Date Initial Exam Provider Initial Ultrasound Date Last Menstrual Period Date Ultra Sound Weeks Gestation 0 Eighteen To Twenty Week Beni Update Ultra Sound Date Fundal Height At Umbil Quickening Date Ultra Sound Latest Weeks Gestation Final Beni Confirmed By Final Beni Confirmed Date Final Beni Date Ultra Sound Latest Days Gestation 0 0 Menstrual History Last Menstrual Date Menses Monthly On Bcp Conception Prior Menses Frequency Hcg Plus Date Menarche Onset Age Delivery Information Delivery Date Delivery Type Labor Anesthesia Weeks Gestation Incision Type Labor Labor Length Hrs Delivered By Post Complications Tubal Sterilization Discharge Date Comments 1 41 false Discharge Information Feeding Method Contraceptive Method Maternal HG B and HCT Levels Ob Episode Information Episode Created Date Number of Fetuses Patient Bloodtype Patient rh Status Prepregnancy Weight lbs Domestic Partner Domestic Partner Phone Father Name Photography Intern Status 04/10/20 25 1 CLOSED Fetus Data First Name Last Name Admitted to NICU Weight (g) Sex Living Outcome Pediatric Complications Fetus ID Race Codes Race Delivery Type 3628.73 6 F Full Term [id number] Beni Calculation Initial Beni Date Initial Exam Date Initial Exam Provider Initial Ultrasound Date Last Menstrual Period Date Ultra Sound Weeks Gestation 0 Eighteen To Twenty Week Beni Update Ultra Sound Date Fundal Height At Umbil Quickening Date Ultra Sound Latest Weeks Gestation Final Beni Confirmed By Final Beni Confirmed Date Final Beni Date Ultra Sound Latest Days Gestation 0 0 Menstrual History Last Menstrual Date Menses Monthly On Bcp Conception Prior Menses Frequency Hcg Plus Date Menarche Onset Age Delivery Information Delivery Date Delivery Type Labor Anesthesia Weeks Gestation Incision Type Labor Labor Length Hrs Delivered By Post Complications Tubal Sterilization Discharge Date Comments 4 40 Discharge Information Feeding Method Contraceptive Method Maternal HG B and HCT Levels
--- OUTSIDE RECORDS SUMMARY | 2025-05-28 17:20 | XMS_ITS | Clinical Summary ---
Author Organization [facility] Address [address] [place] [address] Care Team Providers Care Communications Manager Name Role Phone Gunner Bliss MD Primary Care Provider [phone] Allergies No known active allergies Medications levonorgestrel [...] (10/22/2022): Added automatically from request for surgery [id number] Heart murmur 08/11/2022 Shortness of breath 08/11/2022 [...] Cancer Screening with HPV 11/24/2023 PHQ-2 (Physician [place]) 06/06/2024 COVID-19 Vaccine ( season) 2025 Influenza [...] VE NON-REACT CHRISTA 10/22/2022 7:37 PM CDT [facility] Comment: ANTIBODIES TO HCV NOT DETECTED. DOES NOT EXCLUDE THE POSSIBILITY OF EXPOSURE TO HCV. 10/22/2022 9:16 AM CDT Gunner Bliss MD LABORATORY Final Result Performing Organization Address City/State/[facility] Co de Phone Number [facility] [address] [place] [address], [phone] from Last 3 Months or Most Recently Relevant to Health Maintenance Insurance Advance Directives * Full Code (Latest Code Status on File) Date Activated Date Inactivated Comments 08/07/2020 1:38 PM 08/09/2020 5:21 PM * Full Code Date Activated Date Inactivated Comments 08/07/2020 12:17 AM 08/07/2020 1:38 PM Care Teams Communications Manager Relationship Specialty Start Date End Date Gunner Bliss MD [address] [address] PCP - General INTERNAL MEDICINE 08/17/22
== END 2025-05-28 17:44 | disposition left against medical advice (07) ==
LOC: ANHED 17:19
PROVIDERS: Emergency Provider Emergency Medicine
DX: O20.9 Hemorrhage in early pregnancy, unspecified (principal)
CPT/HCPCS: 81025; 99199